=== PATIENT | female | born 1990 | race Hispanic/Latino ===

== ENCOUNTER 2017-11-11 09:45 | Emergency (ER) | payer SELFPAY ==
[2017-11-11] MEDS ORDERED: Ketorolac Tromethamine 30 MG/ML VIAL ONE (10:24)
[2017-11-11 10:35] LABS: #Eosinphils 0.1 thou/uL (0.0-0.7); #Monocytes 0.4 thou/uL (0.11-0.59); #Neutrophils 9.4 thou/uL (1.40-6.50); %Basophils 0.1 % (0.0-1.0); %Eosinophils 1.1 % (0.0-10.0); %Lymphocytes 16.9 % (21.0-51.0); %Monocytes 3.5 % (0.0-10.0); %Neutrophils 78.4 % (42.0-75.0); Hemoglobin 12.7 g/dL (12.0-16.0); Mean Corpuscular HGB CONC 34.5 g/dL (32.0-36.0); Mean Corpuscular Hemoglobin 31.7 pg (27.0-31.0); Mean Corpuscular Volume 91.8 fl (81.0-99.0); Mean Platelet Volume 7.9 fL (7.4-10.4); Platelet Count 293 thou/uL (130-400); RBC Distribution Width 12.1 % (11.5-14.5); Red Blood Cell (RBC) Count 4.01 mill/uL (4.20-5.40); White Blood Cell (WBC) Count 11.9 thou/uL (4.8-10.8)
[2017-11-11 10:54] LABS: ALT (SGPT) 19 U/L (8-55); AST (SGOT) 16 U/L (5-34); Albumin 3.8 g/dL (3.5-5.0); Alkaline Phosphatase 83 U/L (40-150); Anion Gap 12 mmol/L (10-20); BUN (Urea Nitrogen) 8 mg/dL (7.0-18.7); Bilirubin, Total 0.3 mg/dL (0.2-1.2); Calc. Creatinine Clearance 0 mL/min (70-130); Calcium 9.3 mg/dL (7.8-10.44); Carbon Dioxide 23 mmol/L (22-29); Chloride 105 mmol/L (98-107); Estimated GFR-MDRD Greater than 90; Globulin 3.6 g/dL (2.4-3.5); Glucose 205 mg/dL (70-105); Potassium 4.2 mmol/L (3.5-5.1); Protein, Total 7.4 g/dL (6.0-8.3); Sodium 136 mmol/L (136-145)
[2017-11-11 11:01] LABS: BHCG - Serum Negative (NEGATIVE); Pregs Control Background? CLEAR/WHITE (CLR/WHITE); Pregs Control Bar Appear? YES (CONTROL BAR)
[2017-11-11 11:11] LABS: Bilirubin Small (Negative); Blood, Urine Large (Negative); Clarity CLOUDY (Clear); Glucose, Urine (Dipstick) 100 mg/dL (Negative); Leukocyte Negative (Negative); Nitrite Negative (Negative); Protein, Urine (Dipstick) 30 mg/dL (Neg-Trace); Specific Gravity, Urine 1.025 (1.005-1.030); Urobilinogen 0.2 mg/dL (0.2-1.0); pH, Urine 6.5 (5.0-9.0)
[2017-11-11 11:23] LABS: Bacteria/HPF None Seen HPF (None Seen); Hyaline Casts/LPF NONE SEEN LPF (0-3 Hyaline); RBC/HPF GREATER THAN 50-TNTC HPF (0-3); Squamous Epithelial 0-3 HPF (0-3)
[2017-11-13 09:52] LABS: Chlamydia by PCR Not Detected (NotDetected); GC by PCR Not Detected (NotDetected)
== END 2017-11-11 13:02 | disposition home or self-care (01) ==
LOC: ERS 09:45
DX: N93.8 Other specified abnormal uterine and vaginal bleeding (principal); G43.909 Migraine, unspecified, not intractable, without status migrainosus; F17.210 Nicotine dependence, cigarettes, uncomplicated
CPT/HCPCS: 80053; 81003; 81015; 84703; 85025; 87086; 87480; 87491; 87510; 87591; 87660; 96361; 96374; J1885

== ENCOUNTER 2017-11-12 12:45 | Emergency (ER) | payer SELFPAY ==
[2017-11-12 13:22] LABS: #Eosinphils 0.1 thou/uL (0.0-0.7); #Lymphocytes 2.2 thou/uL (1.20-3.40); #Monocytes 0.4 thou/uL (0.11-0.59); #Neutrophils 8.1 thou/uL (1.40-6.50); %Basophils 0.4 % (0.0-1.0); %Eosinophils 1.1 % (0.0-10.0); %Lymphocytes 20.3 % (21.0-51.0); %Neutrophils 74.3 % (42.0-75.0); Hemoglobin 12.8 g/dL (12.0-16.0); Mean Corpuscular Hemoglobin 30.6 pg (27.0-31.0); Mean Corpuscular Volume 90.1 fl (81.0-99.0); Mean Platelet Volume 7.5 fL (7.4-10.4); Platelet Count 326 thou/uL (130-400); RBC Distribution Width 12.1 % (11.5-14.5); Red Blood Cell (RBC) Count 4.18 mill/uL (4.20-5.40); White Blood Cell (WBC) Count 10.9 thou/uL (4.8-10.8)
[2017-11-12] MEDS ORDERED: HYDROcodone/Acetaminophen 5/325 mg Tablet ONE (14:05)
== END 2017-11-12 14:32 | disposition home or self-care (01) ==
LOC: ERS 12:45
DX: N93.8 Other specified abnormal uterine and vaginal bleeding (principal); F17.210 Nicotine dependence, cigarettes, uncomplicated
CPT/HCPCS: 85025; 99284

== ENCOUNTER 2017-12-28 12:10 | Emergency (ER) | payer SELFPAY ==
[2017-12-28] MEDS ORDERED: Ondansetron ODT 4 MG TAB ONE (12:39)
[2017-12-28 13:02] LABS: #Basophils 0.1 thou/uL (0.0-0.2); #Eosinphils 0.1 thou/uL (0.0-0.7); #Monocytes 0.5 thou/uL (0.11-0.59); #Neutrophils 8.8 thou/uL (1.40-6.50); %Basophils 0.7 % (0.0-1.0); %Eosinophils 1.2 % (0.0-10.0); %Lymphocytes 17.5 % (21.0-51.0); %Monocytes 3.9 % (0.0-10.0); %Neutrophils 76.7 % (42.0-75.0); Hemoglobin 13.7 g/dL (12.0-16.0); Mean Corpuscular HGB CONC 34.5 g/dL (32.0-36.0); Mean Corpuscular Hemoglobin 30.9 pg (27.0-31.0); Mean Corpuscular Volume 89.6 fl (81.0-99.0); Mean Platelet Volume 7.6 fL (7.4-10.4); Platelet Count 351 thou/uL (130-400); RBC Distribution Width 11.7 % (11.5-14.5); Red Blood Cell (RBC) Count 4.43 mill/uL (4.20-5.40); White Blood Cell (WBC) Count 11.4 thou/uL (4.8-10.8)
[2017-12-28 13:17] LABS: BHCG - Serum Negative (NEGATIVE); Pregs Control Background? CLEAR/WHITE (CLR/WHITE); Pregs Control Bar Appear? YES (CONTROL BAR)
[2017-12-28 13:25] LABS: ALT (SGPT) 20 U/L (8-55); AST (SGOT) 20 U/L (5-34); Albumin 4.1 g/dL (3.5-5.0); Alkaline Phosphatase 101 U/L (40-150); Anion Gap 13 mmol/L (10-20); BUN (Urea Nitrogen) 10 mg/dL (7.0-18.7); Bilirubin, Total 0.6 mg/dL (0.2-1.2); CK (CPK) 121 U/L (29-168); Calc. Creatinine Clearance 0 mL/min (70-130); Calcium 9.4 mg/dL (7.8-10.44); Carbon Dioxide 22 mmol/L (22-29); Chloride 106 mmol/L (98-107); Estimated GFR-MDRD 86; Globulin 3.9 g/dL (2.4-3.5); Glucose 166 mg/dL (70-105); Lipase 31 U/L (8-78); Potassium 3.9 mmol/L (3.5-5.1); Sodium 137 mmol/L (136-145)
[2017-12-28 14:15] LABS: Bilirubin Negative (Negative); Blood, Urine Negative (Negative); Clarity CLOUDY (Clear); Glucose, Urine (Dipstick) Negative (Negative); Leukocyte Negative (Negative); Nitrite Negative (Negative); Protein, Urine (Dipstick) Trace mg/dL (Neg-Trace); Specific Gravity, Urine 1.027 (1.002-1.036); Urobilinogen 0.2 mg/dL (0.2-1.0); pH, Urine 5.5 (5.0-9.0)
== END 2017-12-28 14:40 | disposition home or self-care (01) ==
LOC: ERS 12:10
DX: R11.2 Nausea with vomiting, unspecified (principal); R19.7 Diarrhea, unspecified; G43.909 Migraine, unspecified, not intractable, without status migrainosus; Z87.891 Personal history of nicotine dependence
CPT/HCPCS: 80053; 81003; 82550; 83690; 84703; 85025; 96360; 96361; Q0162

== ENCOUNTER 2018-01-16 19:29 | Emergency (ER) | payer SELFPAY ==
[2018-01-16] MEDS ORDERED: Ketorolac Tromethamine 30 MG/ML VIAL ONE (20:14)
== END 2018-01-16 20:39 | disposition home or self-care (01) ==
LOC: ERS 19:29
DX: M54.5 Low back pain (principal); F41.9 Anxiety disorder, unspecified; F32.9 Major depressive disorder, single episode, unspecified; F17.210 Nicotine dependence, cigarettes, uncomplicated; G43.909 Migraine, unspecified, not intractable, without status migrainosus
CPT/HCPCS: 96372; J1885

== ENCOUNTER 2021-12-24 14:01 | Inpatient (IN) | payer OTHER, SELFPAY ==
[~2021-12-24 14:01] MED LIST: Iopamidol-370 76% 500 ML 1 ML ONE
[2021-12-24 14:44] LABS: Bacteria/HPF None Seen HPF (None Seen); Bilirubin Negative (Negative); Blood, Urine 3+ (Negative); Glucose, Urine (Dipstick) Greater than 1000 mg/dL (Negative); Ketone, Urine Negative (Negative); Leukocyte Negative Leu/uL (Negative); Nitrite Negative (Negative); Protein, Urine (Dipstick) Negative (Neg-Trace); RBC/HPF Greater than 50 HPF (0-3); Specific Gravity, Urine 1.032 (1.002-1.036); Squamous Epithelial 0-3 HPF (0-3); Urobilinogen Normal mg/dL (Less than 2); WBC/HPF 0-3 HPF (0-3); pH, Urine 5.5 (5.0-9.0)
[2021-12-24 14:57] LABS: Clarity Hazy (Clear)
[2021-12-24 15:08] LABS: BHCG - Serum Negative (NEGATIVE); Pregs Control Background? CLEAR/WHITE (CLR/WHITE); Pregs Control Bar Appear? YES (CONTROL BAR)
[2021-12-24 15:27] LABS: Lipase 2155 U/L (8-78)
[2021-12-24 15:59] LABS: #Eosinphils 0.1 thou/uL (0.0-0.7); #Lymphocytes 2.3 thou/uL (1.20-3.40); #Monocytes 0.4 thou/uL (0.11-0.59); #Neutrophils 9.1 thou/uL (1.40-6.50); %Basophils 0.3 % (0.0-1.0); %Eosinophils 0.9 % (0.0-10.0); %Monocytes 3.2 % (0.0-10.0); %Neutrophils 76.6 % (42.0-75.0); Hemoglobin 13.7 g/dL (12.0-16.0); Mean Corpuscular HGB CONC 32.9 g/dL (32.0-36.0); Mean Corpuscular Hemoglobin 29.2 pg (27.0-31.0); Mean Corpuscular Volume 88.9 fL (78.0-98.0); Mean Platelet Volume 8.4 fL (7.4-10.4); Platelet Count 287 thou/uL (130-400); Red Blood Cell (RBC) Count 4.69 mill/uL (4.20-5.40); White Blood Cell (WBC) Count 9.4 thou/uL (4.8-10.8)
[2021-12-24 16:01] LABS: MDiff Complete? YES; Platelet Morphology Comment Appears Adequate; Polychromasia SLIGHT = 2-3 cells (100X) (0-2/hpf)
[2021-12-24 16:22] LABS: Anion Gap 19 mmol/L (10-20); BUN (Urea Nitrogen) 6 mg/dL (7.0-18.7); Carbon Dioxide 21 mmol/L (22-29); Chloride 90 mmol/L (98-107); Potassium 3.9 mmol/L (3.5-5.1); Sodium 126 mmol/L (136-145)
[2021-12-24 16:23] LABS: Bilirubin, Total 0.5 mg/dL (0.2-1.2); Calc. Creatinine Clearance 0 mL/min (70-130); Calcium 9.5 mg/dL (7.8-10.44); Glucose 582 mg/dL (70-105)
[2021-12-24 16:26] LABS: AST (SGOT) 12 U/L (5-34); Alkaline Phosphatase 112 U/L (40-110); Globulin 4.7 g/dL (2.4-3.5); Protein, Total 8.7 g/dL (6.0-8.3)
[2021-12-24 16:27] LABS: ALT (SGPT) 16 U/L (8-55)
[2021-12-24] MEDS ORDERED: Dicyclomine 20 MG TAB ONE (16:47)
[2021-12-24] MEDS ORDERED: Morphine 4 MG/ML VIAL ONE (16:47)
[2021-12-24] MEDS ORDERED: Ondansetron PF 4 MG/2 ML Vial ONE (16:47)
[2021-12-24] MEDS ORDERED: NS 0.9% w/ 20 MEQ KCL 1,000 ML/1,000 ML BAG IV SCH (18:30)
[2021-12-24] MEDS ORDERED: INSULIN REGULAR IN 0.9 % NACL 100 UNIT/100 ML BAG ONE (18:30)
[2021-12-24] MEDS ORDERED: Sodium Chloride 0.9% 1,000 ML IV PRN ×4 (20:00)
[2021-12-24] MEDS ORDERED: Ondansetron ODT 4 MG TAB PO PRN (20:00)
[2021-12-24] MEDS ORDERED: Ondansetron PF 4 MG/2 ML Vial IVP PRN (20:00)
[2021-12-24] MEDS ORDERED: Dextrose 5 %-0.45 % NaCl 1,000 ML IV PRN (20:00)
[2021-12-24] MEDS ORDERED: Acetaminophen 650 MG Suppository PR PRN (20:00)
[2021-12-24] MEDS ORDERED: Electrolyte Replacement Protocol 1 EACH IVPB SCH (20:00)
[2021-12-24] MEDS ORDERED: NS 0.9% w/ 20 MEQ KCL 1,000 ML IV PRN ×2 (20:00)
[2021-12-24 20:44] LABS: Anion Gap 18 mmol/L (10-20); BUN (Urea Nitrogen) Less than 4 mg/dL (7.0-18.7); Calc. Creatinine Clearance 0 mL/min (70-130); Calcium 8.5 mg/dL (7.8-10.44); Carbon Dioxide 14 mmol/L (22-29); Chloride 100 mmol/L (98-107); Glucose 230 mg/dL (70-105); Potassium 3.4 mmol/L (3.5-5.1); Sodium 129 mmol/L (136-145)
[2021-12-24] MEDS ORDERED: Morphine 4 MG/ML VIAL SLOW IVP PRN (22:17)
[2021-12-24] MEDS: D5 1/2 NS w/20 mEq KCL 1,000 ML IV PRN ×2 (22:18→22:23)
[2021-12-24 22:51] VITALS: BMI 38.1
[2021-12-24] MEDS: Acetaminophen 325 MG TAB PO PRN (23:10)
[2021-12-24] MEDS: Ketorolac Tromethamine 30 MG/ML VIAL IVP PRN (23:10)
[2021-12-25 00:33] LABS: Anion Gap 16 mmol/L (10-20); BUN (Urea Nitrogen) Less than 4 mg/dL (7.0-18.7); Calc. Creatinine Clearance 290 mL/min (70-130); Calcium 8.1 mg/dL (7.8-10.44); Carbon Dioxide 16 mmol/L (22-29); Chloride 101 mmol/L (98-107); Glucose 219 mg/dL (70-105); Potassium 3.5 mmol/L (3.5-5.1); Sodium 129 mmol/L (136-145)
[2021-12-25 04:29] LABS: Anion Gap 14 mmol/L (10-20); BUN (Urea Nitrogen) Less than 4 mg/dL (7.0-18.7); Calc. Creatinine Clearance 332 mL/min (70-130); Calcium 8.3 mg/dL (7.8-10.44); Carbon Dioxide 18 mmol/L (22-29); Chloride 102 mmol/L (98-107); Glucose 157 mg/dL (70-105); Potassium 3.9 mmol/L (3.5-5.1); Sodium 130 mmol/L (136-145)
[2021-12-25 05:17] LABS: #Eosinphils 0.2 thou/uL (0.0-0.7); #Lymphocytes 2.7 thou/uL (1.20-3.40); #Monocytes 0.5 thou/uL (0.11-0.59); #Neutrophils 5.8 thou/uL (1.40-6.50); %Basophils 0.2 % (0.0-1.0); %Eosinophils 2.1 % (0.0-10.0); %Lymphocytes 29.7 % (21.0-51.0); %Monocytes 4.8 % (0.0-10.0); %Neutrophils 63.1 % (42.0-75.0); Hemoglobin 13.4 g/dL (12.0-16.0); Mean Corpuscular HGB CONC 35.8 g/dL (32.0-36.0); Mean Corpuscular Hemoglobin 33.1 pg (27.0-31.0); Mean Corpuscular Volume 92.5 fL (78.0-98.0); Mean Platelet Volume 8.7 fL (7.4-10.4); Platelet Count 249 thou/uL (130-400); RBC Distribution Width 11.3 % (11.5-14.5); Red Blood Cell (RBC) Count 4.05 mill/uL (4.20-5.40); White Blood Cell (WBC) Count 9.2 thou/uL (4.8-10.8)
[2021-12-25] MEDS: HUMULIN R 100 UNITS in Sodium Chloride 0.9% 100 ML IVPB SCH (05:18)
[2021-12-25] MEDS: D5 1/2 NS w/20 mEq KCL 1,000 ML IV PRN (06:04)
[2021-12-25] MEDS: Acetaminophen 325 MG TAB PO PRN ×2 (06:24→19:39)
[2021-12-25] MEDS: Enoxaparin Sodium 40 MG/0.4 ML SYRINGE SC SCH (07:33)
[2021-12-25 07:59] LABS: Hemoglobin A1c 11.7 % (4.0-6.0)
[2021-12-25 08:12] LABS: Anion Gap 13 mmol/L (10-20); BUN (Urea Nitrogen) Less than 4 mg/dL (7.0-18.7); Calc. Creatinine Clearance 296 mL/min (70-130); Calcium 8.3 mg/dL (7.8-10.44); Carbon Dioxide 19 mmol/L (22-29); Chloride 102 mmol/L (98-107); Glucose 154 mg/dL (70-105); Potassium 3.6 mmol/L (3.5-5.1); Sodium 130 mmol/L (136-145)
[2021-12-25 09:53] LABS: Glucose 203 mg/dL (70-105)
[2021-12-25 12:19] LABS: SARS-CoV-2 PCR by NAA Not Detected (NotDetected)
[2021-12-25 12:22] LABS: Glucose 258 mg/dL (70-105)
[2021-12-25 15:47] LABS: Glucose 314 mg/dL (70-105)
[2021-12-25 16:00] LABS: Chloride 102 mmol/L (98-107); Potassium 4.1 mmol/L (3.5-5.1); Sodium 129 mmol/L (136-145)
[2021-12-25 16:01] LABS: Calcium 8.3 mg/dL (7.8-10.44); Glucose 308 mg/dL (70-105)
[2021-12-25 16:03] LABS: Anion Gap 14 mmol/L (10-20); Carbon Dioxide 17 mmol/L (22-29)
[2021-12-25 16:05] LABS: BUN (Urea Nitrogen) Less than 4 mg/dL (7.0-18.7); Calc. Creatinine Clearance 284 mL/min (70-130)
[2021-12-25] MEDS ORDERED: Electrolyte Replacement Protocol FS PRN (16:30)
[2021-12-25 17:32] LABS: Glucose 229 mg/dL (70-105)
[2021-12-25] MEDS: Sodium Chloride 0.9% 1,000 ML IV SCH (18:29)
[2021-12-25 19:54] LABS: Glucose 249 mg/dL (70-105)
[2021-12-25 22:34] LABS: Glucose 176 mg/dL (70-105)
[2021-12-26 00:57] LABS: Glucose 176 mg/dL (70-105)
[2021-12-26] MEDS: Sodium Chloride 0.9% 1,000 ML IV SCH ×3 (01:34→18:24)
[2021-12-26 02:53] LABS: Anion Gap 13 mmol/L (10-20); BUN (Urea Nitrogen) Less than 4 mg/dL (7.0-18.7); Calc. Creatinine Clearance 227 mL/min (70-130); Calcium 8.2 mg/dL (7.8-10.44); Carbon Dioxide 18 mmol/L (22-29); Chloride 106 mmol/L (98-107); Glucose 212 mg/dL (70-105); Potassium 3.6 mmol/L (3.5-5.1); Sodium 133 mmol/L (136-145)
[2021-12-26] MEDS: HUMULIN R 100 UNITS in Sodium Chloride 0.9% 100 ML IVPB SCH (04:14)
[2021-12-26 04:57] LABS: Glucose 217 mg/dL (70-105)
[2021-12-26] MEDS: Fenofibrate Nanocrystallized 145 MG TAB PO SCH (07:19)
[2021-12-26] MEDS: Enoxaparin Sodium 40 MG/0.4 ML SYRINGE SC SCH (07:19)
[2021-12-26 07:32] LABS: Glucose 201 mg/dL (70-105)
[2021-12-26 08:59] LABS: Glucose 205 mg/dL (70-105)
[2021-12-26 11:06] LABS: Glucose 230 mg/dL (70-105)
[2021-12-26 14:54] LABS: Glucose 236 mg/dL (70-105)
[2021-12-26 17:28] LABS: Glucose 266 mg/dL (70-105)
[2021-12-26 19:01] LABS: Glucose 270 mg/dL (70-105)
[2021-12-26 21:06] LABS: Glucose 289 mg/dL (70-105)
[2021-12-26 23:11] LABS: Glucose 264 mg/dL (70-105)
[2021-12-27] MEDS: Sodium Chloride 0.9% 1,000 ML IV SCH ×4 (00:54→20:44)
[2021-12-27 01:34] LABS: Glucose 218 mg/dL (70-105)
[2021-12-27 03:54] LABS: Anion Gap 13 mmol/L (10-20); BUN (Urea Nitrogen) 6 mg/dL (7.0-18.7); Calc. Creatinine Clearance 217 mL/min (70-130); Calcium 8.9 mg/dL (7.8-10.44); Carbon Dioxide 20 mmol/L (22-29); Chloride 105 mmol/L (98-107); Glucose 204 mg/dL (70-105); Potassium 3.6 mmol/L (3.5-5.1); Sodium 134 mmol/L (136-145)
[2021-12-27 06:35] LABS: Glucose 194 mg/dL (70-105)
[2021-12-27] MEDS: Fenofibrate Nanocrystallized 145 MG TAB PO SCH (08:01)
[2021-12-27] MEDS: Enoxaparin Sodium 40 MG/0.4 ML SYRINGE SC SCH (08:01)
[2021-12-27 08:23] LABS: Glucose 196 mg/dL (70-105)
[2021-12-27 11:04] LABS: Glucose 224 mg/dL (70-105)
[2021-12-27 13:52] LABS: Glucose 235 mg/dL (70-105)
[2021-12-27 16:12] LABS: Glucose 203 mg/dL (70-105)
[2021-12-27 19:27] LABS: Glucose 196 mg/dL (70-105)
[2021-12-27] MEDS: Ketorolac Tromethamine 30 MG/ML VIAL IVP PRN (20:45)
[2021-12-27] MEDS: HUMULIN R 100 UNITS in Sodium Chloride 0.9% 100 ML IVPB SCH (20:47)
[2021-12-27 22:51] LABS: Glucose 244 mg/dL (70-105)
[2021-12-28 00:44] LABS: Anion Gap 14 mmol/L (10-20); BUN (Urea Nitrogen) 6 mg/dL (7.0-18.7); Calc. Creatinine Clearance 203 mL/min (70-130); Calcium 8.7 mg/dL (7.8-10.44); Carbon Dioxide 21 mmol/L (22-29); Chloride 103 mmol/L (98-107); Glucose 289 mg/dL (70-105); Potassium 3.8 mmol/L (3.5-5.1); Sodium 134 mmol/L (136-145)
[2021-12-28 04:29] LABS: Glucose 283 mg/dL (70-105)
[2021-12-28 06:35] LABS: Glucose 211 mg/dL (70-105)
[2021-12-28 08:59] LABS: Glucose 205 mg/dL (70-105)
[2021-12-28] MEDS: Acetaminophen 325 MG TAB PO PRN (10:14)
[2021-12-28] MEDS: Fenofibrate Nanocrystallized 145 MG TAB PO SCH (10:15)
[2021-12-28] MEDS: Enoxaparin Sodium 40 MG/0.4 ML SYRINGE SC SCH (10:16)
[2021-12-28] MEDS: Sodium Chloride 0.9% 1,000 ML IV SCH ×2 (10:21→18:34)
[2021-12-28 10:53] LABS: Glucose 139 mg/dL (70-105)
[2021-12-28 12:59] LABS: Glucose 229 mg/dL (70-105)
[2021-12-28 15:22] LABS: Glucose 253 mg/dL (70-105)
[2021-12-28 17:20] LABS: Glucose 282 mg/dL (70-105)
[2021-12-28] MEDS: HUMULIN R 100 UNITS in Sodium Chloride 0.9% 100 ML IVPB SCH (18:33)
[2021-12-28 19:07] LABS: Glucose 228 mg/dL (70-105)
[2021-12-28 22:24] LABS: Glucose 225 mg/dL (70-105)
[2021-12-29 00:45] LABS: Glucose 192 mg/dL (70-105)
[2021-12-29 04:53] LABS: Anion Gap 14 mmol/L (10-20); BUN (Urea Nitrogen) 7 mg/dL (7.0-18.7); Calc. Creatinine Clearance 222 mL/min (70-130); Calcium 8.5 mg/dL (7.8-10.44); Carbon Dioxide 23 mmol/L (22-29); Chloride 105 mmol/L (98-107); Glucose 193 mg/dL (70-105); Potassium 3.5 mmol/L (3.5-5.1); Sodium 138 mmol/L (136-145)
[2021-12-29] MEDS ORDERED: Potassium Chloride 20 MEQ TAB PO SCH (05:15)
[2021-12-29] MEDS: Fenofibrate Nanocrystallized 145 MG TAB PO SCH (09:00)
[2021-12-29] MEDS: Enoxaparin Sodium 40 MG/0.4 ML SYRINGE SC SCH (09:00)
[2021-12-29] MEDS: Sodium Chloride 0.9% 1,000 ML IV SCH (20:58)
[2021-12-30] MEDS: HUMULIN R 100 UNITS in Sodium Chloride 0.9% 100 ML IVPB SCH (02:37)
[2021-12-30 04:41] LABS: Anion Gap 11 mmol/L (10-20); BUN (Urea Nitrogen) 7 mg/dL (7.0-18.7); Calc. Creatinine Clearance 212 mL/min (70-130); Calcium 8.3 mg/dL (7.8-10.44); Carbon Dioxide 23 mmol/L (22-29); Chloride 107 mmol/L (98-107); Glucose 240 mg/dL (70-105); Lipase 106 U/L (8-78); Potassium 3.5 mmol/L (3.5-5.1); Sodium 137 mmol/L (136-145)
[2021-12-30] MEDS ORDERED: Potassium Chloride 20 MEQ TAB PO SCH (05:00)
[2021-12-30] MEDS: Fenofibrate Nanocrystallized 145 MG TAB PO SCH (09:48)
[2021-12-30] MEDS: Enoxaparin Sodium 40 MG/0.4 ML SYRINGE SC SCH (09:48)
[2021-12-30] MEDS ORDERED: Dextrose 5% in Water 1,000 ML IV PRN (10:43)
[2021-12-30] MEDS ORDERED: Dextrose 50% Abboject 50 ML SYRINGE SLOW IVP PRN (10:43)
[2021-12-30] MEDS ORDERED: HumaLOG 300 UNITS/3 ML VIAL SC PRN (10:43)
[2021-12-30] MEDS ORDERED: Insulin Glargine 30 UNITS/0.3 ML VIAL SC SCH (10:45)
[2021-12-30 12:32] VITALS: TEMP 97.9
== END 2021-12-30 18:20 | disposition home or self-care (01) | DRG 642 ==
LOC: ERS 14:01 → IMCU/EMU 18:26
PROVIDERS: ADMIT Internal Medicine; ATTEND Internal Medicine
DX: E78.1 Pure hyperglyceridemia (principal); K85.90 Acute pancreatitis without necrosis or infection, unspecified; F12.10 Cannabis abuse, uncomplicated; F17.210 Nicotine dependence, cigarettes, uncomplicated; G43.909 Migraine, unspecified, not intractable, without status migrainosus; F32.A Depression, unspecified; F41.9 Anxiety disorder, unspecified; E66.01 Morbid (severe) obesity due to excess calories; K76.0 Fatty (change of) liver, not elsewhere classified; E11.65 Type 2 diabetes mellitus with hyperglycemia; Z20.822 Contact with and (suspected) exposure to COVID-19; Z79.899 Other long term (current) drug therapy; Z68.39 Body mass index [BMI] 39.0-39.9, adult
CPT/HCPCS: 36415; 36416; 74177; 76705; 80048; 80053; 81003; 81015; 82010; 83036; 83615; 83690; 84478; 84703; 85025; 87077; 87086; 96365; 96366; 96368; 96375; J1650; J1815; J1885; J2270; J2405; J3480; J3490; J7050; Q9967; U0003; U0005

== ENCOUNTER 2022-02-28 15:29 | Emergency (ER) | payer SELFPAY ==
[2022-02-28 16:18] LABS: #Eosinphils 0.1 thou/uL (0.0-0.7); #Lymphocytes 2.2 thou/uL (1.20-3.40); #Monocytes 0.4 thou/uL (0.11-0.59); #Neutrophils 9.6 thou/uL (1.40-6.50); %Basophils 0.1 % (0.0-1.0); %Eosinophils 1.1 % (0.0-10.0); %Monocytes 3.3 % (0.0-10.0); %Neutrophils 77.6 % (42.0-75.0); Hemoglobin 15.7 g/dL (12.0-16.0); Mean Corpuscular HGB CONC 33.6 g/dL (32.0-36.0); Mean Corpuscular Hemoglobin 31.7 pg (27.0-31.0); Mean Corpuscular Volume 94.1 fL (78.0-98.0); Mean Platelet Volume 7.9 fL (7.4-10.4); Platelet Count 386 thou/uL (130-400); RBC Distribution Width 11.6 % (11.5-14.5); Red Blood Cell (RBC) Count 4.97 mill/uL (4.20-5.40); White Blood Cell (WBC) Count 12.4 thou/uL (4.8-10.8)
[2022-02-28 16:25] LABS: BHCG - Serum Negative (NEGATIVE); Pregs Control Background? CLEAR/WHITE (CLR/WHITE); Pregs Control Bar Appear? YES (CONTROL BAR)
[2022-02-28 16:45] LABS: ALT (SGPT) 18 U/L (8-55); AST (SGOT) 16 U/L (5-34); Albumin 4.8 g/dL (3.5-5.0); Alkaline Phosphatase 66 U/L (40-110); Anion Gap 15 mmol/L (10-20); BUN (Urea Nitrogen) 9 mg/dL (7.0-18.7); Bilirubin, Total 0.7 mg/dL (0.2-1.2); Calc. Creatinine Clearance 0 mL/min (70-130); Calcium 10.5 mg/dL (7.8-10.44); Carbon Dioxide 23 mmol/L (22-29); Chloride 105 mmol/L (98-107); Estimated GFR 96; Globulin 4.7 g/dL (2.4-3.5); Glucose 131 mg/dL (70-105); Lipase 27 U/L (8-78); Potassium 4.1 mmol/L (3.5-5.1); Protein, Total 9.5 g/dL (6.0-8.3); Sodium 139 mmol/L (136-145)
== END 2022-02-28 18:11 | disposition home or self-care (01) ==
LOC: ERS 15:29
DX: R11.2 Nausea with vomiting, unspecified (principal); F17.210 Nicotine dependence, cigarettes, uncomplicated; Z79.899 Other long term (current) drug therapy; Z79.84 Long term (current) use of oral hypoglycemic drugs; Z79.4 Long term (current) use of insulin
CPT/HCPCS: 80053; 83690; 84703; 85025; 94760; 96360; 96361

== ENCOUNTER 2022-03-04 10:58 | Emergency (ER) | payer SELFPAY ==
[~2022-03-04 10:58] MED LIST changes: +ISOVUE-370 76%-LOCM 1 ML ONE; -Iopamidol-370 76% 500 ML 1 ML ONE
[2022-03-04 11:32] LABS: BHCG - Serum Negative (NEGATIVE); Pregs Control Background? CLEAR/WHITE (CLR/WHITE); Pregs Control Bar Appear? YES (CONTROL BAR)
[2022-03-04 11:35] LABS: #Eosinphils 0.2 thou/uL (0.0-0.7); #Lymphocytes 2.3 thou/uL (1.20-3.40); #Monocytes 0.3 thou/uL (0.11-0.59); #Neutrophils 6.3 thou/uL (1.40-6.50); %Basophils 0.3 % (0.0-1.0); %Eosinophils 2.5 % (0.0-10.0); %Lymphocytes 24.8 % (21.0-51.0); %Monocytes 3.6 % (0.0-10.0); %Neutrophils 68.9 % (42.0-75.0); Hemoglobin 13.4 g/dL (12.0-16.0); Mean Corpuscular HGB CONC 34.1 g/dL (32.0-36.0); Mean Corpuscular Hemoglobin 31.7 pg (27.0-31.0); Mean Corpuscular Volume 92.8 fL (78.0-98.0); Mean Platelet Volume 8.1 fL (7.4-10.4); Platelet Count 379 thou/uL (130-400); RBC Distribution Width 11.3 % (11.5-14.5); Red Blood Cell (RBC) Count 4.23 mill/uL (4.20-5.40); White Blood Cell (WBC) Count 9.2 thou/uL (4.8-10.8)
[2022-03-04 11:50] LABS: ALT (SGPT) 17 U/L (8-55); AST (SGOT) 15 U/L (5-34); Albumin 4.1 g/dL (3.5-5.0); Alkaline Phosphatase 56 U/L (40-110); Anion Gap 11 mmol/L (10-20); BUN (Urea Nitrogen) 11 mg/dL (7.0-18.7); Bilirubin, Total 0.3 mg/dL (0.2-1.2); Calc. Creatinine Clearance 0 mL/min (70-130); Calcium 9.9 mg/dL (7.8-10.44); Carbon Dioxide 27 mmol/L (22-29); Chloride 106 mmol/L (98-107); Estimated GFR 99; Glucose 173 mg/dL (70-105); Lipase 36 U/L (8-78); Protein, Total 8.1 g/dL (6.0-8.3); Sodium 140 mmol/L (136-145)
[2022-03-04] MEDS ORDERED: Ondansetron PF 4 MG/2 ML Vial ONE (11:54)
[2022-03-04] MEDS ORDERED: Morphine 4 MG/ML VIAL ONE (11:54)
[2022-03-04 13:21] LABS: Bilirubin Negative (Negative); Blood, Urine Negative (Negative); Clarity Clear (Clear); Glucose, Urine (Dipstick) Normal (Negative); Ketone, Urine Negative (Negative); Leukocyte Negative Leu/uL (Negative); Nitrite Negative (Negative); Protein, Urine (Dipstick) Negative (Neg-Trace); Urobilinogen Normal mg/dL (Less than 2); pH, Urine 5.5 (5.0-9.0)
== END 2022-03-04 15:07 | disposition home or self-care (01) ==
LOC: ERS 10:58
DX: R11.10 Vomiting, unspecified (principal); F17.210 Nicotine dependence, cigarettes, uncomplicated; Z79.4 Long term (current) use of insulin; Z79.899 Other long term (current) drug therapy
CPT/HCPCS: 36415; 74177; 80053; 81003; 83690; 84703; 85025; 94760; 96361; 96374; 96375; J2270; J2405; Q9966

== ENCOUNTER 2022-03-31 08:34 | Emergency (ER) | payer SELFPAY ==
[2022-03-31] MEDS ORDERED: Ketorolac Tromethamine 30 MG/ML VIAL ONE (11:11)
[2022-03-31] MEDS ORDERED: HYDROcodone/Acetaminophen 5/325 mg Tablet ONE (12:05)
== END 2022-03-31 12:01 | disposition home or self-care (01) ==
LOC: ERS 08:34
DX: S82.832A Other fracture of upper and lower end of left fibula, initial encounter for closed fracture (principal); F17.210 Nicotine dependence, cigarettes, uncomplicated; W10.9XXA Fall (on) (from) unspecified stairs and steps, initial encounter; Z79.4 Long term (current) use of insulin; Z79.899 Other long term (current) drug therapy
CPT/HCPCS: 96372; J1885

== ENCOUNTER 2023-02-11 22:37 | Emergency (ER) | payer SELFPAY ==
[2023-02-12] MEDS ORDERED: Lidocaine 1% w/Epinephrine 1:100K 20 ML VIAL ONE (01:23)
[2023-02-12] MEDS ORDERED: fentaNYL 50 mcg/mL 1 mL Vial ONE (01:23)
== END 2023-02-12 02:26 | disposition home or self-care (01) ==
LOC: ERS 22:37
DX: N76.4 Abscess of vulva (principal); E11.9 Type 2 diabetes mellitus without complications; F17.210 Nicotine dependence, cigarettes, uncomplicated; Z79.84 Long term (current) use of oral hypoglycemic drugs; Z79.4 Long term (current) use of insulin
CPT/HCPCS: 56405; 96372; J3010

== ENCOUNTER 2023-06-09 19:52 | Emergency (ER) | payer SELFPAY ==
[2023-06-09 20:48] LABS: #Eosinphils 0.1 thou/uL (0.0-0.7); #Monocytes 0.6 thou/uL (0.11-0.59); #Neutrophils 5.6 thou/uL (1.40-6.50); %Basophils 0.3 % (0.0-1.0); %Lymphocytes 34.2 % (21.0-51.0); %Monocytes 6.1 % (0.0-10.0); %Neutrophils 58.2 % (42.0-75.0); Hematocrit 37.2 % (36.0-47.0); Hemoglobin 13.7 g/dL (12.0-16.0); Mean Corpuscular HGB CONC 36.8 g/dL (32.0-36.0); Mean Corpuscular Hemoglobin 32.1 pg (27.0-31.0); Mean Corpuscular Volume 87.1 fl (78.0-98.0); Mean Platelet Volume 10.3 fL (7.4-10.4); Platelet Count 322 10x3/uL (130-400); RBC Distribution Width 11.9 % (11.5-14.5); Red Blood Cell (RBC) Count 4.27 mill/uL (4.20-5.40); White Blood Cell (WBC) Count 9.6 10x3/uL (4.8-10.8)
[2023-06-09] MEDS ORDERED: Aspirin Chewable 81 MG TAB ONE (21:02)
[2023-06-09] MEDS ORDERED: hydrOXYzine 25 MG TAB ONE (21:06)
[2023-06-09 21:13] LABS: ALT (SGPT) 15 U/L (8-55); AST (SGOT) 12 U/L (5-34); Albumin 4.3 g/dL (3.5-5.0); Alkaline Phosphatase 83 U/L (40-110); Anion Gap 15 mmol/L (10-20); BUN (Urea Nitrogen) 10 mg/dL (7.0-18.7); Bilirubin, Total 0.4 mg/dL (0.2-1.2); Calc. Creatinine Clearance 0 mL/min (70-130); Calcium 9.7 mg/dL (7.8-10.44); Carbon Dioxide 22 mmol/L (22-29); Chloride 99 mmol/L (98-107); Estimated GFR 107; Globulin 4.1 g/dL (2.4-3.5); Glucose 261 mg/dL (70-105); Lipase 53 U/L (8-78); Potassium 3.8 mmol/L (3.5-5.1); Protein, Total 8.4 g/dL (6.0-8.3); Sodium 132 mmol/L (136-145)
[2023-06-09 21:16] LABS: Troponin I Less than 0.010 ng/mL (< 0.028)
== END 2023-06-09 23:07 | disposition home or self-care (01) ==
LOC: ERS 19:52
DX: R07.89 Other chest pain (principal); E11.9 Type 2 diabetes mellitus without complications; Z79.4 Long term (current) use of insulin; Z79.899 Other long term (current) drug therapy
CPT/HCPCS: 71045; 80053; 83690; 84484; 85025; 93005

== ENCOUNTER 2023-09-02 17:17 | Emergency (ER) | payer SELFPAY ==
[2023-09-02 19:51] LABS: SARS-CoV-2 NAA Rapid Test Not Detected (NotDetected)
[2023-09-02] MEDS ORDERED: Acetaminophen 500 MG TAB ONE (19:52)
[2023-09-02] MEDS ORDERED: Ibuprofen 200 MG TAB ONE (19:52)
[2023-09-02] MEDS ORDERED: Ondansetron ODT 4 MG TAB ONE (20:42)
== END 2023-09-02 20:47 | disposition home or self-care (01) ==
LOC: ERS 17:17
DX: J10.1 Influenza due to other identified influenza virus with other respiratory manifestations (principal); R07.9 Chest pain, unspecified; E11.9 Type 2 diabetes mellitus without complications; Z79.84 Long term (current) use of oral hypoglycemic drugs; Z79.4 Long term (current) use of insulin
CPT/HCPCS: 71046; 87804; 93005; Q0162; U0002

== ENCOUNTER 2024-01-25 22:27 | Emergency (ER) | payer SELFPAY ==
[2024-01-26] MEDS ORDERED: Ketorolac Tromethamine 30 MG (1 mL) VIAL ONE (02:01)
[2024-01-26] MEDS ORDERED: Fluconazole 100 MG TAB ONE (02:01)
[2024-01-26 02:27] LABS: Bacteria/HPF None Seen HPF (None Seen); Bilirubin Negative (Negative); Blood, Urine Trace (Negative); CAUTI Indications for Culture Dysuria,urgency,freq; Clarity Clear (Clear); Glucose, Urine (Dipstick) Greater than 1000 mg/dL (Negative); Ketone, Urine Negative (Negative); Leukocyte 25 Leu/uL (Negative); Nitrite Negative (Negative); Protein, Urine (Dipstick) Negative (Neg-Trace); RBC/HPF 0-3 HPF (0-3); Specific Gravity, Urine 1.038 (1.002-1.036); Squamous Epithelial 0-3 HPF (0-3); Urobilinogen Normal mg/dL (Less than 2); pH, Urine 5.5 (5.0-9.0)
[2024-01-26 02:29] LABS: Urine Culture Reflex No No
== END 2024-01-26 02:54 | disposition home or self-care (01) ==
LOC: ERS 22:27
DX: N76.0 Acute vaginitis (principal); E11.9 Type 2 diabetes mellitus without complications
CPT/HCPCS: 81001; 96374; J1885

== ENCOUNTER 2024-01-28 07:39 | Emergency (ER) | payer SELFPAY ==
[2024-01-28] MEDS ORDERED: HYDROcodone/Acetaminophen 5/325 mg Tablet ONE (08:27)
[2024-01-28 14:27] LABS: Chlamydia by PCR, Vaginal Swab Not Detected (NotDetected); GC by PCR, Vaginal Swab Not Detected (NotDetected)
== END 2024-01-28 11:56 | disposition home or self-care (01) ==
LOC: ERS 07:39
DX: N76.0 Acute vaginitis (principal); E11.9 Type 2 diabetes mellitus without complications
CPT/HCPCS: 36416; 87480; 87491; 87510; 87591; 87660; 99283

== ENCOUNTER 2024-07-26 13:55 | Emergency (ER) | payer SELFPAY ==
[2024-07-26] MEDS ORDERED: Morphine 4 MG/ML VIAL ONE ×5 (15:03→19:55)
[2024-07-26] MEDS ORDERED: Sodium Chloride 0.9% 100 ML ONE (15:03)
[2024-07-26] MEDS ORDERED: cefTRIAXone (ROCEPHIN) 2 GM VIAL ONE ×2 (15:03)
[2024-07-26] MEDS ORDERED: Ketorolac Tromethamine 30 MG (1 mL) VIAL ONE ×2 (15:03→19:56)
[2024-07-26] MEDS ORDERED: Ondansetron PF 4 MG/2 ML Vial ONE ×5 (15:03→19:55)
[2024-07-31 12:31] LABS: ALT (SGPT) 34 U/L (8-55); AST (SGOT) 57 U/L (5-34); Albumin 3.1 g/dL (3.5-5.0); Alkaline Phosphatase 77 U/L (40-110); Anion Gap 18 mmol/L (10-20); BUN (Urea Nitrogen) 5 mg/dL (7.0-18.7); Bilirubin, Total 0.3 mg/dL (0.2-1.2); Calc. Creatinine Clearance 0 mL/min (70-130); Calcium 8.9 mg/dL (7.8-10.44); Carbon Dioxide 21 mmol/L (22-29); Chloride 97 mmol/L (98-107); Estimated GFR 80; Globulin 6.1 g/dL (2.4-3.5); Glucose 321 mg/dL (70-105); Potassium 4.6 mmol/L (3.5-5.1); Protein, Total 9.2 g/dL (6.0-8.3); Sodium 131 mmol/L (136-145)
[2024-07-31 12:32] LABS: Critical Call Chemistry NUR.MEM4 @ 2215
[2024-07-31 14:32] LABS: ALT (SGPT) 11 U/L (8-55); AST (SGOT) 22 U/L (5-34); Albumin 4.1 g/dL (3.5-5.0); Alkaline Phosphatase 81 U/L (40-110); Anion Gap 17 mmol/L (10-20); BUN (Urea Nitrogen) 13 mg/dL (7.0-18.7); Bilirubin, Total 0.6 mg/dL (0.2-1.2); Calc. Creatinine Clearance 0 mL/min (70-130); Calcium 9.1 mg/dL (7.8-10.44); Carbon Dioxide 22 mmol/L (22-29); Chloride 106 mmol/L (98-107); Estimated GFR 118; Globulin 3.8 g/dL (2.4-3.5); Glucose 88 mg/dL (70-105); Potassium 4.5 mmol/L (3.5-5.1); Protein, Total 7.9 g/dL (6.0-8.3); Sodium 140 mmol/L (136-145)
[2024-07-31 14:34] LABS: Magnesium 1.5 mg/dL (1.6-2.6)
== END 2024-07-27 17:02 | disposition home or self-care (01) ==
LOC: ERS 13:55
DX: N10 Acute pyelonephritis (principal); N83.209 Unspecified ovarian cyst, unspecified side; E11.9 Type 2 diabetes mellitus without complications
CPT/HCPCS: 74176; 76856; 80053; 81001; 83735; 87040; 87086; 96365; 96375; 96376; J0696; J1885; J2272; J2405

== ENCOUNTER 2025-05-31 11:20 | Emergency (ER) | payer SELFPAY ==
[2025-05-31 11:54] LABS: Pregnancy Test - Urine (BHCG) Negative (Negative); Pregu Control Background? CLEAR/WHITE (CLR/WHITE); Pregu Control Bar Appear? YES (CONTROL BAR)
[2025-05-31 12:09] LABS: CAUTI Indications for Culture Pelvic or flank pain; Glucose, Urine (Dipstick) Greater than 1000 mg/dL (Negative); Leukocyte Negative Leu/uL (Negative); Protein, Urine (Dipstick) Negative (Neg-Trace); RBC/HPF 0-3 HPF (0-3); Specific Gravity, Urine 1.040 (1.002-1.036); WBC/HPF 0-3 HPF (0-3); Yeast-Budding 1+ HPF (None Seen)
[2025-05-31 12:14] LABS: Bacteria/HPF Rare-Few HPF (None Seen); Urine Culture Reflex No No
[2025-05-31] MEDS ORDERED: Ketorolac Tromethamine 30 MG (1 mL) VIAL ONE (13:04)
[2025-05-31] MEDS ORDERED: HYDROcodone/Acetaminophen 10/325 mg Tablet ONE (13:05)
[2025-05-31] MEDS ORDERED: Dexamethasone 10 MG/ML VIAL ONE (13:05)
== END 2025-05-31 13:41 | disposition home or self-care (01) ==
LOC: ERS 11:20
DX: S39.012A Strain of muscle, fascia and tendon of lower back, initial encounter (principal); E11.9 Type 2 diabetes mellitus without complications; X50.9XXA Other and unspecified overexertion or strenuous movements or postures, initial encounter
CPT/HCPCS: 81001; 81025; 96372; 99283; J1100; J1885; J2060